=== PATIENT | male | born 1970 | race African-American/Black ===

== ENCOUNTER 2024-01-27 00:16 | Emergency (ER) | payer OTHER ==
[~2024-01-27] VITALS: Ht 182.9 cm; Wt 87.0 kg
== END 2024-01-27 00:49 ==
LOC: ER 00:33
DX: M79.641 Pain in right hand (principal)
CPT/HCPCS: 99283

== ENCOUNTER 2024-03-13 20:42 | Emergency (ER) | payer SELFPAY ==
[~2024-03-13] VITALS: Ht 172.7 cm; Wt 68.0 kg
[2024-03-13 21:43] VITALS: O2SAT 95
[2024-03-13] MEDS ORDERED: KETOROLAC 30MG/ML VIAL IV NR (22:00)
[2024-03-13] MEDS: SODIUM CHLORIDE 0.9% 1,000 ML IV ONE (22:59)
[2024-03-13] MEDS: KETOROLAC 30MG/ML VIAL IV STA (22:59)
[2024-03-14 02:15] VITALS: BP 138/78; PULSE 98; RESP 18; TEMP 36.72516; O2SAT 98
== END 2024-03-14 02:15 | disposition home or self-care (01) ==
LOC: ER 20:42
DX: N20.0 Calculus of kidney (principal); R10.9 Unspecified abdominal pain
CPT/HCPCS: 74176; 96361; 96374; 99285; J1885; J7030; Z7610